=== PATIENT | female | born 1970 | race Caucasian/White ===

== ENCOUNTER 2017-08-31 06:50 | Emergency (ER) | payer SELFPAY ==
[~2017-08-31] VITALS: Ht 160 cm; Wt 55.0 kg
[2017-08-31 06:53] VITALS: BP 172/97; PULSE 86; RESP 16; TEMP 98.1; O2SAT 94
[2017-08-31] MEDS ORDERED: RESP: ALBUTEROL 2.5 MG/IPRATROPIUM 0.5 MG NEB (SCH) NEB ONE (07:15)
--- NOTE | 2017-08-31 07:35 | PD ---
HPI Chief Complaint: Cold / Flu Symptoms Time Seen by Provider: 07:05 Travel History International Travel<30 days: No Contact w/Intl Traveler<30days: No Traveled to known affect area: No History of Present Illness HPI Patient is a 47-year-old female presents emergency department for evaluation of cough and congestion as well as some mild shortness of breath for the past month gradually worsening. Patient does have a history of smoking but quit about 4 years ago. 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 Denies any fevers denies any nausea vomiting denies any chest pain. Denies any chest tightness. She does not use any inhalers at home. Carries no diagnosis of COPD. States she is producing "phlegm" which is clear. No history of blood clots, no history of stasis. PFSH Past Medical History Anemia: Yes Diminished Hearing: No Musculoskeletal: Yes (SCOLIOSIS) Influenza Vaccination: Yes ?: Not LMP: 08/31/17 Tubal Ligation: Yes Social History Alcohol Use: Yes (SOCIAL) Tobacco Use: No (quit 4 years ago) Substance Use: No Allergies-Medications (Allergen,Severity, Reaction): Coded Allergies: No Known Allergies (Unverified , 08/31/17) Reported Meds & Prescriptions Reported Meds & Active Scripts Active Azithromycin 250 Mg Tab 250 Mg PO DIRECTED Take 2 tabs (500 mg) on day 1 then 1 tab daily x 4 days. Proair Hfa 8.5 GM Inh (Albuterol Sulfate) 90 Mcg/Act Aer 2 Puff INH Q4-6H PRN 108 mcg/actuation Prednisone 20 Mg Tab 60 Mg PO DAILY 5 Days Review of Systems Except as stated in HPI: all other systems reviewed are Neg Physical Exam Narrative GENERAL: Well-nourished, well-developed patient. Thin patient, quite pleasant in no distress. SKIN: Focused skin assessment warm/dry. HEAD: Normocephalic. EYES: No scleral icterus. No injection or drainage. NECK: Supple, trachea midline. No JVD or lymphadenopathy. CARDIOVASCULAR: Regular rate and rhythm without murmurs, gallops, or rubs. RESPIRATORY: Breath sounds equal bilaterally. No accessory muscle use. No reasons rales or rhonchi. Good air entry bilaterally. No increased work of breathing. GASTROINTESTINAL: Abdomen soft, non-tender, nondistended. MUSCULOSKELETAL: No cyanosis, or edema. BACK: Nontender without obvious deformity. No CVA tenderness. Data Data Last Documented VS Vital Signs Date Time Temp Pulse Resp B/P (MAP) Pulse Ox O2 Delivery O2 Flow Rate FiO2 08/31/17 08:05 08/31/17 06:53 98.1 86 16 94 Room Air Orders Orders Chest, Pa & Lat (08/31/17 ) Albuterol-Ipratropium Neb (Duoneb Neb) (08/31/17 07:15) MDM Medical Decision Making Medical Screen Exam Complete: Yes Emergency Medical Condition: Yes Differential Diagnosis PE excluded by [facility] and [facility], chronic bronchitis, COPD, pneumonia. Narrative Course Patient roomed emerged permit, chest x-ray clear but definitely hyperinflated. Patient was given a single DuoNeb, is feeling much better. Discussed with the possibility of COPD and recommended follow-up with a graphic manager. She was given a referral. She is feeling much better, will try a course of steroids and antibiotics for possible acute bronchitis. Discussed return to ED criteria Diagnosis Primary Impression: Cough Additional Impression: COPD (chronic obstructive pulmonary disease) Qualified Codes: J42 - Unspecified chronic bronchitis Referrals: Libby Souza MD Med/Other Pt SpecificInfo: Prescription(s) given Scripts Azithromycin (Azithromycin) 250 Mg Tab 250 MG PO DIRECTED for Infection, #6 TAB 0 Refills Take 2 tabs (500 mg) on day 1 then 1 tab daily x 4 days. Prov: Ruperto Rodarte MD 08/31/17 Albuterol 8.5 GM Inh (Proair Hfa 8.5 GM Inh) 90 Mcg/Act Aer 2 PUFF INH Q4-6H Y for SHORTNESS OF BREATH, #1 INHALER 1 Refill 108 mcg/actuation Prov: Ruperto Rodarte MD 08/31/17 Prednisone (Prednisone) 20 Mg Tab 60 MG PO DAILY for 5 Days, #15 TAB 0 Refills Prov: Ruperto Rodarte MD 08/31/17 Disposition: 01 DISCHARGE HOME Condition: Stable Ruperto Rodarte MD Aug 31, 2017 07:35
--- NOTE | 2017-08-31 07:40 | RADRPT ---
EXAM DATE/TIME: 08/31/2017 07:37 [facility] COMPARISON: No previous studies available for comparison. INDICATIONS : Cough, shortness of breath, and congestion. MEDICAL HISTORY : None. SURGICAL HISTORY : None. ENCOUNTER: Initial ACUITY: 1 month PAIN SCORE: 0/10 LOCATION: chest FINDINGS: The heart is normal in size. The pulmonary parenchyma demonstrates chronic interstitial changes most consistent with COPD. The lungs are otherwise clear. No pneumothorax is present. There is advanced ro tatory scoliosis of the thoracic spine. The visualized bony structures are otherwise grossly intact. CONCLUSION: 1. COPD changes. 2. Rotatory scoliosis of the thoracic spine. Quintin Lema MD on August 31, 2017 at 7:38 Board Certified Radiologist. This report was verified electronically.
[2017-08-31] MEDS ORDERED: PRED20 PO (07:54)
[2017-08-31] MEDS ORDERED: ALBUAER3 INH (07:54)
[2017-08-31] MEDS ORDERED: AZIT250T3 PO (07:54)
== END 2017-08-31 08:05 | disposition home or self-care (01) ==
LOC: NEPC 06:50
DX: R05 Cough (principal); J44.9 Chronic obstructive pulmonary disease, unspecified
CPT/HCPCS: 71020; 94664; 99284

== ENCOUNTER 2018-03-31 18:25 | Emergency (ER) | payer SELFPAY | END 2018-03-31 20:50 | disposition left against medical advice (07) | LOC: NED 18:25 | DX: Z53.21 Procedure and treatment not carried out due to patient leaving prior to being seen by health care provider (principal) | CPT/HCPCS: 99281 ==

== ENCOUNTER 2018-04-01 11:05 | Emergency (ER) | payer SELFPAY ==
[2018-04-01] MEDS ORDERED: SODIUM CHLORIDE 0.9% FLUSH 10 ML FLUSH IVF (11:45)
[2018-04-01] MEDS: RESP: ALBUTEROL 2.5 MG/3 ML NEB (SCH) INH (11:49)
[2018-04-01 12:07] LABS: AUTOMATED NEUTROPHIL # 4.2 TH/MM3 (1.8-7.7); BASOPHIL # 0.1 TH/MM3 (0-0.2); EOSINOPHIL # 0.9 TH/MM3 (0-0.4); HEMATOCRIT 45.5 % (35.0-46.0); HEMO FLAGS DIFF FINAL; LYMPH % 26.9 % (9.0-44.0); LYMPHOCYTE # 2.1 TH/MM3 (1.0-4.8); MEAN CELL VOLUME 86.9 FL (80.0-100.0); MEAN CORPUSCULAR HEMOGLOBIN 28.6 PG (27.0-34.0); MEAN PLATELET VOLUME 8.2 FL (7.0-11.0); MONO % 7.7 % (0.0-8.0); MONOCYTE # 0.6 TH/MM3 (0-0.9); NEUT % 53.4 % (16.0-70.0); PLATELET COUNT 493 TH/MM3 (150-450); RED BLOOD COUNT 5.23 MIL/MM3 (4.00-5.30); RED CELL DISTRIBUTION WIDTH 12.2 % (11.6-17.2); WHITE BLOOD COUNT 7.9 TH/MM3 (4.0-11.0)
[2018-04-01 12:17] LABS: CHLORIDE 104 MEQ/L (98-107); SODIUM (NA) 137 MEQ/L (136-145)
[2018-04-01 12:20] LABS: ANION GAP 7 MEQ/L (5-15); BICARBONATE 25.9 MEQ/L (21.0-32.0); BLOOD UREA NITROGEN 10 MG/DL (7-18); CALCIUM 8.8 MG/DL (8.5-10.1); GLUCOSE,RANDOM 91 MG/DL (74-106)
[2018-04-01 12:23] LABS: CREATININE 0.53 MG/DL (0.50-1.00); GLOMERULAR FILTRATION RATE 123 ML/MIN (>89)
[2018-04-01 12:25] LABS: D-DIMER 0.35 MG/L FEU (0.00-0.50)
[2018-04-01 12:28] LABS: TROPONIN I LESS THAN 0.02 NG/ML (0.02-0.05)
[2018-04-01 12:32] LABS: B-TYPE NATRIURETIC PEPTIDE 35 PG/ML (0-100)
== END 2018-04-01 13:02 | disposition home or self-care (01) ==
LOC: PHED 11:05
DX: R06.00 Dyspnea, unspecified (principal); J44.9 Chronic obstructive pulmonary disease, unspecified; D64.9 Anemia, unspecified; M41.9 Scoliosis, unspecified; Z87.891 Personal history of nicotine dependence
CPT/HCPCS: 71045; 80048; 83880; 84484; 85025; 85379; 93005; 94664; 99285